=== PATIENT | male | born 1945 | race Caucasian/White ===

== ENCOUNTER 2017-08-12 07:22 | Inpatient (IN) | payer MEDICARE, OTHER ==
[2017-08-11 16:22] LABS: BASOPHILS % 0.2 % (0.0-1.0); EOSINOPHILS # (AUTO) 0.3 (0.0-0.4); EOSINOPHILS % 1.7 % (0.0-6.0); HEMATOCRIT 37.4 % (38.2-49.6); LYMPHOCYTES # (AUTO) 4.2 (1.0-3.2); LYMPHOCYTES % 22.6 % (18.0-39.1); MEAN CORPUSCULAR HEMOGLOBIN 28.1 pg (28-32); MEAN CORPUSCULAR HGB CONC 32.1 g/dL (31-35); MEAN CORPUSCULAR VOLUME 87.6 fL (81-99); MONOCYTES # (AUTO) 1.1 (0.2-0.8); MONOCYTES % 5.8 % (4.4-11.3); NEUTROPHILS # (AUTO) 12.8 (2.1-6.9); PLATELET COUNT 209 x10e3/uL (140-360); RED BLOOD COUNT 4.27 x10e6/uL (4.3-5.7); RED CELL DISTRIBUTION WIDTH 14.9 % (11.7-14.4)
[2017-08-11 16:33] LABS: INR 1.39
[2017-08-11 16:44] LABS: ALANINE AMINOTRANSFERASE 28 IU/L (0-55); ALBUMIN 3.5 g/dL (3.5-5.0); ALKALINE PHOSPHATASE 53 IU/L (40-150); ANION GAP 14.4 mmol/L (8-16); BLOOD UREA NITROGEN 23 mg/dL (7-26); BUN/CREATININE RATIO 24 (6-25); CALCIUM 9.6 mg/dL (8.4-10.2); CARBON DIOXIDE 29 mmol/L (22-29); CHLORIDE 101 mmol/L (98-107); CHOL/HDL RATIO 3.1 (3.9-4.7); CHOLESTEROL 135 MD/DL (0-199); CREATININE, SERUM 0.97 mg/dL (0.72-1.25); EST GLOMERULAR FILTRATION RATE > 60 ML/MIN (60-); HDL CHOLESTEROL 43 MG/DL (40-60); POTASSIUM 3.4 mmol/L (3.5-5.1); SODIUM 141 mmol/L (136-145)
[2017-08-11 16:50] LABS: GLUCOSE 59 mg/dL (74-118)
[2017-08-11 16:58] LABS: LDL CHOLESTEROL 67 MG/DL (60-130); TRIGLYCERIDES 124 MG/DL (0-149)
[~2017-08-12] VITALS: Ht 170.2 cm; Wt 99.5 kg
[~2017-08-12 07:22] MED LIST: ASPIR 8181 MG PO; FENTANYL CITRATE/PF 100MCG/2 ML INJ ONE; FINASTERIDE5 MG PO; GLIMEPIRIDE2 MG PO; HEPARIN SOD/SOD CHLORIDE 2,000 ML ONE; HYDRALAZINE HCL25 MG PO; IOPAMIDOL 370 MG/ML 200 ML INFUS..BTL INJ ONE; ISOSORBIDE MONO30 MG PO; LASIX40 MG PO; LIDOCAINE HCL 2% LOCAL 20 ML VIAL ONE; METFORMIN HCL500 MG PO; MIDAZOLAM HCL 2 MG/2 ML VIAL ONE; NEXIUM40 MG PO; PROAIR HFA INH8.5 GM IH; SIMVASTATIN20 MG PO; SODIUM CHLORIDE 0.9% 1000ML 1,000 ML ONE; TOPROL XL25 MG PO; TOPROL XL50 MG PO; WARFARIN SODIUM3 MG PO
[2017-08-12 07:32] VITALS: BP 142/66
[2017-08-12] MEDS ORDERED: HEPARIN SOD (PORCINE) 1000 UNIT/ML 30ML ONE (07:37)
[2017-08-12] MEDS ORDERED: VERAPAMIL HCL 2.5 MG/ML 2 ML VIAL ONE (07:37)
[2017-08-12] MEDS ORDERED: NITROGLYCERIN/D5W 200 MCG/ML 250 ML ONE (07:37)
[2017-08-12] MEDS: HYDRALAZINE HCL 25 MG TAB PO SCH ×2 (08:10→21:00)
[2017-08-12] MEDS ORDERED: IOPAMIDOL 370 MG/ML 200 ML INFUS..BTL INJ ONE (08:57)
[2017-08-12] MEDS ORDERED: SODIUM CHLORIDE 0.9% 50ML 50 ML ONE (09:01)
[2017-08-12] MEDS ORDERED: ADENOSINE 3MG/1ML 30ML VIAL ONE (09:01)
[2017-08-12] MEDS ORDERED: FUROSEMIDE INJ 10 MG/ML 4 ML VIAL ONE (09:13)
--- NOTE | 2017-08-12 10:59 | Operative Report ---
DATE OF PROCEDURE: August 12, 2017 CUSTOMER MARKETING ASSISTANT: Bhavesh Gutierrez MD, interventional cardiology. INDICATIONS 1. Worsening ventricular systolic function in a patient with known mild to moderate CAD, nonischemic cardiomyopathy, and systolic heart failure. 2. Angina pectoris, crescendo. PROCEDURES PERFORMED 1. Left heart catheterization. 2. Selective coronary angiography. 3. Left anterior descending fractional flow reserve. 4. Right radial TR band hemostasis. PROCEDURE COMPLICATIONS: None. ESTIMATED BLOOD LOSS: Less than 15 mL. PROCEDURE SUMMARY: After consent was obtained, the patient was prepped and draped in a sterile fashion. The right radial site was locally infiltrated with 2% lidocaine. Access was obtained. A 5-[place] Islander outer diameter Slender sheath was placed, and 2.5 mg of verapamil and 3,000 units initially of heparin and additional 6,000 units administered prior to FFR, and 200 mcg of nitroglycerin were administered. A TIG catheter was used for engagement of the left main, right coronary artery, as well as across the aortic valve for hemodynamic measurements. No left ventriculogram was performed. FINDINGS 1. Left main distal 20% stenosis, gives an LAD, ramus intermedius and circumflex. 2. The LAD has an ostial 60% stenosis. FFR of the LAD is 0.83 at peak hyperemia. 3. Ramus intermedius has luminal irregularities. 4. The circumflex has obtuse marginal of medium caliber, 30% focal stenosis distal to the obtuse marginal, and 2 left posterolateral branches arising from this vessel. 5. The right coronary artery is dominant. It has in the mid portion 40% and 30% focal stenoses and a distal area of 50% tubular stenosis. It gives small-caliber RPDA and small-caliber RPLV. 6. LV pressure was 121/10 with end-diastolic pressure of 31. 7. Aortic pressure was 120/56. 8. FFR of LAD was 0.83. CONCLUSIONS: Mild to moderate multivessel coronary artery disease. RECOMMENDATIONS 1. Continue medical management of CAD and heart failure. 2. Admit for IV diuretics. 3. EP consultation. Job#: [id number]
--- NOTE | 2017-08-12 12:53 | History and Physical ---
CHIEF COMPLAINT: Shortness of breath. HISTORY OF PRESENT ILLNESS: Mr. Beltran is a gentleman well known to our service with nonischemic cardiomyopathy, coronary artery disease, chronic systolic heart failure, hypertension, diabetes, dyslipidemia, who has had worsening in left ventricular systolic function requiring LifeVest placement. He underwent elective left heart catheterization today, demonstrated moderate coronary artery disease with LAD stenosis documented by FFR to be 0.83. Therefore, continued medical aggressive management for CAD and heart failure is advised. He has been on optimal medical therapy for over 3 months for his heart failure. Most recently he developed angioedema with Entresto as well as lisinopril. Therefore, this is now contraindicated. He is continuing beta blockers. His LVEDP today is in the 30s. He is being admitted for acute on chronic decompensated systolic heart failure for IV diuretics. EP will be consulted. REVIEW OF SYSTEMS: A 12-system review negative except for as noted above. PAST MEDICAL HISTORY: As per HPI. SOCIAL HISTORY: No active smoking, no alcohol, no drugs. FAMILY HISTORY: Significant for hypertension. PHYSICAL EXAMINATION: VITAL SIGNS: Blood pressure 120/56, heart rate 67, respiratory rate 18, O2 sat 99% on nasal cannula. GENERAL: No acute distress. Alert. NECK: JVD elevated. CHEST: Decreased breath sounds in bilateral bases. CARDIOVASCULAR: Regular rate and rhythm. Normal S1 and S2. No S3 or S4. ABDOMEN: Soft. EXTREMITIES: Trace edema. LABS: Reviewed. MEDICATIONS: Reviewed. ASSESSMENT: 1. Acute on chronic systolic heart failure. 2. Atrial fibrillation. 3. Nonischemic cardiomyopathy. 4. Moderate coronary artery disease. 5. Diabetes mellitus. 6. Hypertension. 7. Dyslipidemia. RECOMMENDATIONS 1. Hold warfarin for the next couple of days. 2. Wean TR band. 3. EP consultation for consideration of ICD. 4. Continue beta liss. 5. IV diuretics. 6. Insulin sliding scale. 7. Hold metformin given angiogram done today. 8. DVT prophylaxis. Job#: [id number] RODDY
[2017-08-12 13:23] VITALS: BP 123/56
[2017-08-12] MEDS ORDERED: DEXTROSE 50% SYRINGE 50 ML IV PRN (14:30)
[2017-08-12] MEDS ORDERED: POTASSIUM CHLORIDE 20 MEQ TAB CR PO NR (14:30)
[2017-08-12 15:22] VITALS: BP 143/66
[2017-08-12 15:34] VITALS: BP 143/66
[2017-08-12 15:51] VITALS: BP 143/6
[2017-08-12] MEDS: INSULIN REGULAR, HUMAN 100 UNIT/1 ML 3ML VIAL SQ SCH ×2 (16:00→21:16)
[2017-08-12] MEDS: METFORMIN HCL 500 MG TAB PO SCH (17:00)
[2017-08-12] MEDS: FUROSEMIDE INJ 10 MG/ML 2 ML VIAL IV SCH (17:00)
[2017-08-12] MEDS: WARFARIN SOD 3 MG TAB PO SCH (17:00)
[2017-08-12 20:29] VITALS: BP 140/64
[2017-08-12] MEDS: METOPROLOL SUCCINATE 50 MG TAB XL PO SCH (21:15)
[2017-08-12] MEDS: SIMVASTATIN 20 MG TAB PO SCH (21:15)
[2017-08-13] VITALS (7 sets, daily range): BP systolic 129–158; BP diastolic 60–68
[2017-08-13] MEDS: INSULIN REGULAR, HUMAN 100 UNIT/1 ML 3ML VIAL SQ SCH ×4 (07:30→21:00)
[2017-08-13] MEDS: METFORMIN HCL 500 MG TAB PO SCH ×2 (08:00→16:05)
[2017-08-13] MEDS: FUROSEMIDE INJ 10 MG/ML 2 ML VIAL IV SCH ×2 (08:10→21:36)
[2017-08-13] MEDS: ISOSORBIDE MONONITRATE 30 MG TAB CR PO SCH (08:10)
[2017-08-13] MEDS: FINASTERIDE 5 MG TAB PO SCH (08:10)
[2017-08-13] MEDS: PANTOPRAZOLE SOD 40 MG TABEC PO SCH (08:10)
[2017-08-13] MEDS: HYDRALAZINE HCL 25 MG TAB PO SCH ×3 (08:10→21:36)
[2017-08-13] MEDS: GLIMEPIRIDE 2 MG TAB PO SCH (08:10)
[2017-08-13 08:44] LABS: INR 1.2; PROTHROMBIN TIME 14.3 seconds (11.9-14.5)
[2017-08-13] MEDS: ASPIRIN 81 MG CHEW TAB PO SCH (09:00)
[2017-08-13] MEDS ORDERED: MIDAZOLAM HCL 2 MG/2 ML VIAL ONE (16:17)
[2017-08-13] MEDS ORDERED: FENTANYL CITRATE/PF 100MCG/2 ML INJ ONE (16:18)
[2017-08-13] MEDS ORDERED: LIDOCAINE HCL 2% LOCAL 20 ML VIAL ONE ×2 (16:18→17:13)
[2017-08-13] MEDS ORDERED: BACITRACIN 50,000 UNIT VIAL ONE (16:18)
[2017-08-13] MEDS ORDERED: IOPAMIDOL 300MG/ML 50ML INFUS..BTL IV ONE (16:19)
[2017-08-13] MEDS ORDERED: SODIUM CHLORIDE 0.9% 1000ML 1,000 ML ONE ×2 (16:19→17:04)
[2017-08-13] MEDS ORDERED: WARFARIN SOD 3 MG TAB PO SCH (17:00)
[2017-08-13] MEDS ORDERED: VANCOMYCIN 1GM/NS 250 ML 250 ML ONE (17:04)
[2017-08-13] MEDS ORDERED: SODIUM CHLORIDE 0.9% 500ML 500 ML ONE (17:09)
[2017-08-13] MEDS: METOPROLOL SUCCINATE 50 MG TAB XL PO SCH (21:00)
[2017-08-13] MEDS: SIMVASTATIN 20 MG TAB PO SCH (21:37)
--- NOTE | 2017-08-13 21:43 | Progress Note ---
DATE: August 13, 2017 CARDIOLOGY PROGRESS NOTE SUBJECTIVE: The patient denies chest pain or shortness of breath. He was seen prior to ICD implant. OBJECTIVE VITAL SIGNS: Temperature 96.2 degrees, pulse 56, respiratory rate 20, blood pressure 136/65, oxygen saturation 98% on room air. GENERAL: Awake, alert, in no acute distress. LUNGS: Clear to auscultation bilaterally. No wheezes or crackles. CARDIOVASCULAR: Normal rate, regular rhythm. Normal S1, S2. ABDOMEN: Soft. EXTREMITIES: No edema. CARDIAC MEDICATIONS 1. Isosorbide mononitrate 30 mg p.o. daily. 2. Furosemide 40 mg IV b.i.d. 3. Simvastatin 10 mg p.o. nightly. 4. Metoprolol succinate 200 mg p.o. daily. 5. Aspirin 81 mg p.o. daily. LABS: None today. TELEMETRY: Sinus bradycardia. IMPRESSION 1. Xmxxn-zx-clgtxfd systolic heart failure. 2. Atrial fibrillation. 3. Nonischemic cardiomyopathy. 4. Moderate coronary artery disease. 5. Diabetes mellitus. 6. Hypertension. 7. Dyslipidemia. RECOMMENDATIONS: Hold warfarin for ICD implantation. Continue current cardiac medications. Otherwise, monitor creatinine and electrolytes. Possible discharge home tomorrow after device interrogation if patient's symptoms are improved. Job#: [id number] DEYSI
[2017-08-13 22:25] LABS: ANION GAP 11.4 mmol/L (8-16); BLOOD UREA NITROGEN 15 mg/dL (7-26); BUN/CREATININE RATIO 19 (6-25); CALCIUM 8.7 mg/dL (8.4-10.2); CARBON DIOXIDE 28 mmol/L (22-29); CHLORIDE 106 mmol/L (98-107); EST GLOMERULAR FILTRATION RATE > 60 ML/MIN (60-); GLUCOSE 148 mg/dL (74-118); POTASSIUM 3.4 mmol/L (3.5-5.1); SODIUM 142 mmol/L (136-145)
--- NOTE | 2017-08-13 23:53 | Operative Report ---
DATE OF PROCEDURE: August 13, 2017 PREPROCEDURE DIAGNOSES 1. 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 2. Congestive heart failure class III. POSTPROCEDURE DIAGNOSES 1. 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 2. Congestive heart failure class III. ESTIMATED BLOOD LOSS: 5 mL. COMPLICATIONS: None. PROCEDURES PERFORMED 1. Single-chamber cardiac defibrillator implant. 2. Moderate sedation. Moderate conscious sedation was provided under my direct supervision by sedation-trained nurse. Sedation approximate time 30 minutes. Versed and Fentanyl. There were no complications. See sedation form for details. DESCRIPTION OF PROCEDURE: After informed consent was obtained, the patient was brought to the electrophysiology laboratory in a fasting, nonsedated state. The area over his chest was prepped and draped in the usual sterile fashion. Moderate sedation and prophylactic antibiotic were given. One percent lidocaine was used as local anesthetic and a 3-cm skin incision was made in the left subclavicular area. Electrocautery, sharp and blunt dissection were used to breach the muscular fascia and a pocket was created for eventual implantation of the device. Vascular access was obtained times 1 in the left axillary vein using modified Seldinger technique under fluoroscopic guidance. A 9-Kazakh sheath was placed. The ventricular lead was advanced to the RV apex. R wave 10, pacing 0.6 at 0.5, impedance 690. The sheath was removed from the body. The lead was secured to fascia using 0-silk. Pocket was irrigated with antibiotic solution using a pulse mail processing equipment mechanic. Hemostasis was meticulous. Lead was connected to the device and entire ICD system placed in the pocket. Incision was closed using Vicryl and Dermabond. Patient tolerated the procedure well. Procedure was deemed complete. SUMMARY OF HARDWARE IMPLANTED 1. The new defibrillator is [employer], model #[id number], [id number]. 2. The new defibrillator lead is [place] [employer] 8065, [id number]. IMPRESSION: Successful single-chamber cardiac defibrillator implant. PLAN 1. Routine postop monitoring in telemetry bed. 2. Chest x-ray. 3. Follow up in 2 weeks. Job#: [id number]
[2017-08-14] VITALS: BP 143/65
[2017-08-14] MEDS: INSULIN REGULAR, HUMAN 100 UNIT/1 ML 3ML VIAL SQ SCH ×3 (07:30→15:45)
[2017-08-14 08:08] VITALS: BP 160/67
[2017-08-14] MEDS: PANTOPRAZOLE SOD 40 MG TABEC PO SCH (09:39)
[2017-08-14] MEDS: GLIMEPIRIDE 2 MG TAB PO SCH (09:39)
[2017-08-14] MEDS: FINASTERIDE 5 MG TAB PO SCH (09:42)
[2017-08-14] MEDS: FUROSEMIDE INJ 10 MG/ML 2 ML VIAL IV SCH ×2 (09:42→17:17)
[2017-08-14] MEDS: HYDRALAZINE HCL 25 MG TAB PO SCH ×2 (09:42→14:01)
[2017-08-14] MEDS: ISOSORBIDE MONONITRATE 30 MG TAB CR PO SCH (09:42)
[2017-08-14] MEDS: METFORMIN HCL 500 MG TAB PO SCH ×2 (09:42→17:17)
[2017-08-14] MEDS: ASPIRIN 81 MG CHEW TAB PO SCH (09:42)
[2017-08-14 09:48] VITALS: BP 160/67
[2017-08-14 12:00] VITALS: BP 135/61
[2017-08-14 16:06] VITALS: BP 144/63
--- NOTE | 2017-08-14 16:42 | Discharge Summary ---
ADMISSION DIAGNOSES 1. Rtgkb-on-xmdfwpa systolic heart failure. 2. Nonischemic cardiomyopathy. DISCHARGE DIAGNOSES 1. Fwleq-dj-pzhwsso systolic heart failure. 2. Nonischemic cardiomyopathy. 3. Comorbid conditions. 4. Atrial fibrillation. 5. Moderate coronary artery disease. 6. Diabetes mellitus. 7. Hypertension. 8. Dyslipidemia. PROCEDURES: 1. Cardiac catheterization. 2. Single chamber cardiac defibrillator implant. HISTORY OF PRESENT ILLNESS AND HOSPITAL COURSE: This is a 72-year-old male with history as above who presented for elective cardiac catheterization. It revealed moderate coronary artery disease with LAD stenosis documented by FFR to be 0.83. He was continued on aggressive medical therapy and EP was consulted for ICD implantation as the patient has been on optimal medical therapy for over 3 months. He, unfortunately, cannot tolerate MINO or ARB as he develops angioedema with Entresto and lisinopril. The patient's LVEDP was elevated on cardiac catheterization, thus he was diuresed during admission. He tolerated ICD implantation without any complications, and was discharged home in stable condition. ACTIVITY: Arm restrictions per EP. DIET: Heart Healthy Diabetic Low-Sodium diet. MEDICATIONS: Please see discharge medication reconciliation. FOLLOWUP INSTRUCTIONS: 1. Follow up with Dr. Gutierrez in 2 weeks. 2. Follow up with Dr. Buckley in 2 weeks. VITAL SIGNS: Reviewed. PHYSICAL EXAMINATION GENERAL: Awake, alert, in no acute distress. LUNGS: Clear to auscultation bilaterally. No wheezes or crackles. CARDIOVASCULAR: Normal rate, regular rhythm. Normal S1, S2. ABDOMEN: Soft. EXTREMITIES: No edema. TELEMETRY: Normal sinus rhythm. COLBY SLAUGHTER MD Job#: [id number] GH
[2017-08-14 17:09] LABS: ANION GAP 15.5 mmol/L (8-16); BLOOD UREA NITROGEN 13 mg/dL (7-26); BUN/CREATININE RATIO 14 (6-25); CALCIUM 9.7 mg/dL (8.4-10.2); CARBON DIOXIDE 27 mmol/L (22-29); CHLORIDE 102 mmol/L (98-107); CREATININE, SERUM 0.96 mg/dL (0.72-1.25); EST GLOMERULAR FILTRATION RATE > 60 ML/MIN (60-); GLUCOSE 96 mg/dL (74-118); POTASSIUM 3.5 mmol/L (3.5-5.1); SODIUM 141 mmol/L (136-145)
[2017-08-14] MEDS: WARFARIN SOD 3 MG TAB PO SCH (17:17)
--- NOTE | 2017-08-14 18:11 | Consultation ---
DATE OF CONSULTATION: August 13, 2017 REASON FOR CONSULT: Cardiomyopathy, consider ICD. REFERRING PHYSICIAN: Dr. Gutierrez. HISTORY OF PRESENT ILLNESS: This is a 72-year-old gentleman with history of cardiomyopathy that is nonischemic dilated cardiomyopathy with ejection fraction of 25% to 30%, has been refractory to medical therapy for more than 3 months, followed by Dr. Gutierrez. He has coronary artery disease; however, underwent heart catheterization and it was found to be nonsignificant, so no intervention was performed. We were consulted to consider a defibrillator. Patient has shortness of breath with minimal activities, congestive heart failure class III. No history of syncope. No palpitations. No history of cardiac arrest. REVIEW OF SYSTEMS CONSTITUTIONAL: Negative. CARDIOVASCULAR: As per HPI. RESPIRATORY: Negative. GASTROINTESTINAL: Negative. GENITOURINARY: Negative. MUSCULOSKELETAL: Negative. EYES: Negative. ENT: Negative. ALLERGY/IMMUNOLOGY: Negative. PSYCHIATRY: Negative. PAST MEDICAL HISTORY: Cardiomyopathy, coronary artery disease. SOCIAL HISTORY: No smoking, alcohol or illicit drugs. SURGICAL HISTORY: Negative. FAMILY HISTORY: No premature coronary artery disease. PHYSICAL EXAM VITAL SIGNS: Blood pressure 160/60, pulse 70, respirations 20, O2 sat 98%. GENERAL: In no acute distress. HEENT: Moist mucous membranes. No lesions. NECK: No JVD. CARDIOVASCULAR: Regular rhythm. RESPIRATORY: Clear. ABDOMEN: Soft, nontender. MUSCULOSKELETAL: 2+ distal pulses. NEUROLOGICAL: No focal deficit. SKIN: No lesions. PSYCHIATRY: Normal thought process. EKG: Sinus rhythm. Narrow QRS. IMPRESSION 1. Nonischemic dilated cardiomyopathy with ejection fraction 25% to 30% refractory to medical therapy. 2. Congestive heart failure class III. RECOMMENDATIONS: I had a long discussion with the patient. He will benefit from a defibrillator for primary prevention of sudden cardiac . This was explained in detail with benefits and risks. Patient voiced his understanding and wishes to proceed. We will plan for a single-chamber cardiac defibrillator implant. Thank you for letting us participate in Mr. Beltran's [facility]. Job#: [id number]
== END 2017-08-14 18:11 | disposition home or self-care (01) | DRG 223 ==
LOC: CATH LAB 07:22 → IMCU 11:36 → OBSVTOIN 11:36 → IMCU 13:45 → UNDOADMOB 13:45 → IMCU 14:22 → MED/SURG2 14:22 → UNDODISOB 08-14 18:11
PROVIDERS: ADMIT Internal Medicine Cardiovascular Disease; ATTEND Internal Medicine Cardiovascular Disease
PROC: 4A023N7 Measurement of Cardiac Sampling and Pressure, Left Heart, Percutaneous Approach (ICD-10-PCS; principal; 2017-08-12)
PROC: B2111ZZ Fluoroscopy of Multiple Coronary Arteries using Low Osmolar Contrast (ICD-10-PCS; 2017-08-12)
PROC: B2151ZZ Fluoroscopy of Left Heart using Low Osmolar Contrast (ICD-10-PCS; 2017-08-12)
PROC: 0JH608Z Insertion of Defibrillator Generator into Chest Subcutaneous Tissue and Fascia, Open Approach (ICD-10-PCS; 2017-08-13)
PROC: 02HK3KZ Insertion of Defibrillator Lead into Right Ventricle, Percutaneous Approach (ICD-10-PCS; 2017-08-13)
DX: I11.0 Hypertensive heart disease with heart failure (principal); I50.23 Acute on chronic systolic (congestive) heart failure; I48.91 Unspecified atrial fibrillation; Z79.01 Long term (current) use of anticoagulants; I25.10 Atherosclerotic heart disease of native coronary artery without angina pectoris; E11.9 Type 2 diabetes mellitus without complications; E78.5 Hyperlipidemia, unspecified; Z88.8 Allergy status to other drugs, medicaments and biological substances
CPT/HCPCS: 36005; 36140; 36415; 77001; 77002; 80048; 80053; 80061; 82948; 85025; 85610; 93005; 93458; 93571; C1882; G0378; J0153; J1644; J1940; J2001; J2250; J3370; J7030; J7040; J7799; Q9967

== ENCOUNTER 2018-07-16 12:30 | Observation (INO) | payer MEDICARE ==
--- NOTE | 2018-07-15 12:15 | NUR ---
Pt interviewed for scheduled procedure. reviewed of medical history and medications. Review of procedural consent, pre-op orders, and Hibiclens bath. All questions clarified and or answered where appropriate. pt verbalizes understanding to include day of procedure expectations. - [facility] [place]
--- NOTE | 2018-07-15 12:59 | NUR ---
Dr. Walters notified via phone no labwork ordered for patient. Dr. Walters ordered CBC, CMP, and PT/INR for patient.
[2018-07-15 13:10] LABS: BASOPHILS # (AUTO) 0.1 (0.0-0.1); BASOPHILS % 0.5 % (0.0-1.0); EOSINOPHILS # (AUTO) 0.4 (0.0-0.4); EOSINOPHILS % 3.6 % (0.0-6.0); HEMATOCRIT 39.1 % (38.2-49.6); HEMOGLOBIN 12.1 g/dL (14.0-18.0); LYMPHOCYTES % 24.6 % (18.0-39.1); MEAN CORPUSCULAR HEMOGLOBIN 26.8 pg (28-32); MEAN CORPUSCULAR HGB CONC 30.9 g/dL (31-35); MEAN CORPUSCULAR VOLUME 86.7 fL (81-99); MONOCYTES # (AUTO) 1.1 (0.2-0.8); MONOCYTES % 8.8 % (4.4-11.3); NEUTROPHILS # (AUTO) 7.6 (2.1-6.9); NEUTROPHILS % 62.2 % (38.7-80.0); PLATELET COUNT 240 x10e3/uL (140-360); RED BLOOD COUNT 4.51 x10e6/uL (4.3-5.7); RED CELL DISTRIBUTION WIDTH 15.7 % (11.7-14.4)
[2018-07-15 13:21] LABS: INR 0.89; PROTHROMBIN TIME 12.5 seconds (11.9-14.5)
[2018-07-15 13:28] LABS: ALANINE AMINOTRANSFERASE 18 IU/L (0-55); ALBUMIN 3.7 g/dL (3.5-5.0); ALKALINE PHOSPHATASE 75 IU/L (40-150); ANION GAP 14.1 mmol/L (8-16); BLOOD UREA NITROGEN 18 mg/dL (7-26); BUN/CREATININE RATIO 16 (6-25); CALCIUM 9.4 mg/dL (8.4-10.2); CARBON DIOXIDE 28 mmol/L (22-29); CHLORIDE 103 mmol/L (98-107); CREATININE, SERUM 1.11 mg/dL (0.72-1.25); EST GLOMERULAR FILTRATION RATE > 60 ML/MIN (60-); GLUCOSE 84 mg/dL (74-118); POTASSIUM 4.1 mmol/L (3.5-5.1); SODIUM 141 mmol/L (136-145)
[2018-07-16] VITALS (13 sets, daily range): BP systolic 125–159; BP diastolic 62–82
[~2018-07-16] VITALS: Ht 170.2 cm; Wt 96.2 kg
[~2018-07-16 12:30] MED LIST changes: +BACITRACIN ZINC 0.9GM TP ONE; -FENTANYL CITRATE/PF 100MCG/2 ML INJ ONE; -HEPARIN SOD/SOD CHLORIDE 2,000 ML ONE; -IOPAMIDOL 370 MG/ML 200 ML INFUS..BTL INJ ONE; -LIDOCAINE HCL 2% LOCAL 20 ML VIAL ONE; -MIDAZOLAM HCL 2 MG/2 ML VIAL ONE; -SODIUM CHLORIDE 0.9% 1000ML 1,000 ML ONE
[2018-07-16] MEDS ORDERED: MIDAZOLAM HCL 2 MG/2 ML VIAL ONE ×2 (13:14→15:35)
[2018-07-16] MEDS ORDERED: IOPAMIDOL 370 MG/ML 200 ML INFUS..BTL INJ ONE ×3 (13:14→15:37)
[2018-07-16] MEDS ORDERED: SODIUM CHLORIDE 0.9% 1000ML 1,000 ML ONE (13:14)
[2018-07-16] MEDS ORDERED: HEPARIN SOD/SOD CHLORIDE 2,000 ML ONE (13:14)
[2018-07-16] MEDS ORDERED: FENTANYL CITRATE/PF 100MCG/2 ML INJ ONE (13:14)
[2018-07-16] MEDS ORDERED: LIDOCAINE HCL 2% LOCAL 20 ML VIAL ONE (13:14)
--- OUTSIDE RECORDS SUMMARY | 2018-07-16 13:56 | XMS REPORT ---
Author [facility] Address Unknown Phone Unavailable Care Team Providers Care Wealth Management Advisor Name Role Phone Unavailable Unavailable Payers Payer Name Policy Type Policy Number Effective Date Expiration Date Problems This patient has no known problems. Allergies, Adverse Reactions, Alerts Allergy Name Allergy Type Status Severity Reaction(s) Onset Date Inactive Date Treating Clinician Comments valsartan DA Active 2018-04-14 00:00:00 sacubitril DA Active SV 2018-04-14 00:00:00 lisinopril DA Active U 2018-02-22 00:00:00 lisinopril DA Active U 2018-02-05 00:00:00 lisinopril DA Active U 2017-08-09 00:00:00 Medications This patient has no known medications. Results Test Description Test Time Test Comments Text Results Atomic Results Result Comments - XR CHEST 1 V 2018-04-20 16:31:00 FAX: Meng Belcher [phone] [place]: [address] St: DIS FAX: Meng Mcclelland [phone] FAX: Marisela Kraft MD [phone] Name: RULA SIMMONS [facility] : 1945 Age/S: 72/M [address] Unit #: [id number] [facility] [address] Phys: Marisela Velasquez MD Acct: [id number] Dis Date: 20180421 Status: DIS IN PHONE #: [phone] Exam Date: 04/20/2018 1350 FAX #: [phone] Reason: sob EXAMS: CPT CODE: [id number] XR CHEST 1 V 66951 EXAM: Chest x-ray, one view; INFORMATION: Shortness of breath, respiratory distress; IMPRESSION: No significant change compared with the recent study from April 17, 2018; persistent mild infiltrative changes in the right lung. Mild cardiomegaly. at 1631 Reported and signed by: Alex Mares M.D. CC: Meng Crisostomo DO; Meng Mcclelland MD; Marisela Velasquez MD Technologist: RT JOYCELYN(Yamilet) Trnscrd Date/Time/By: 04/20/2018 (7852) : By: [email or web address] Orig Print D/T: S: 04/20/2018 (0141) PAGE 1 Signed Report - XR CHEST 1 V 2018-04-17 10:38:00 FAX: Meng Belcher [phone] [place]: [address] St: DIS FAX: Meng Mcclelland [phone] Name: RULA SIMMONS [facility] : 1945 Age/S: 72/M [address] Unit #: [id number] Loc: [place] [address] Phys: Meng Mcclelland MD Acct: [id number] Dis Date: 20180421 Status: DIS IN PHONE #: [phone] Exam Date: 04/17/2018 0846 FAX #: [phone] Reason: RESP DISTRESS. CHF. PNA EXAMS: CPT CODE: [id number] XR CHEST 1 V 74305 HISTORY: Respiratory distress with CHF and pneumonia. COMPARISON: April 15, 2018. Left ICD is unchanged. Patchy nodular right infiltrate is unchanged. Dependent changes. No effusion. No congestion. Cardiomegaly. IMPRESSION: Patchy nodular right lung infiltrate demonstrating no significant change. at 1038 Reported and signed by: Tho Dominique M.D. CC: Meng Crisostomo DO; Meng Mcclelland MD Technologist: Bailey jaimes Trnscrd Date/Time/By: 04/17/2018 (1038) : By: [email or web address] Orig Print D/T: S: 04/17/2018 (1041) PAGE 1 Signed Report - XR CHEST 1 V 2018-04-15 10:20:00 FAX: Meng Belcher [phone] [place]: [address] St: DIS FAX: Meng Mcclelland [phone] Name: RULA SIMMONS [facility] : 1945 Age/S: 72/M [address] Unit #: [id number] Loc: [address] [address] Phys: Meng Mcclelland MD Acct: [id number] Dis Date: 20180421 Status: DIS IN PHONE #: [phone] Exam Date: 04/15/2018 0936 FAX #: [phone] Reason: CHF EXACERBATION EXAMS: CPT CODE: [id number] XR CHEST 1 V 42889 HISTORY: CHF exacerbation. COMPARISON: April 12, 2018. ICD is unchanged. Patchy right infiltrate. Dependent changes. No effusion or congestion. Cardiomegaly IMPRESSION: Worsening patchy right lung infiltrate from previous exam. at 1020 Reported and signed by: Tho Dominique M.D. CC: Meng Crisostomo DO; eMng Mcclelland MD Technologist: Svitlana Chen(R) Trnscrd Date/Time/By: (1020) : By: [email or web address] Orig Print D/T: S: 04/15/2018 (3241) PAGE 1 Signed Report - XR CHEST 1 V 2018-04-12 20:49:00 FAX: Calvin Mabry MD [phone] [place]: [address]: DIS Name: RULA SIMMONS [facility] : 1945 Age/S: 72/M [address] [facility] Unit #: [id number] Loc: V.[address] [place] [address] Phys: Calvin Mabry MD Acct: [id number] Dis Date: 20180421 Status: DIS IN PHONE #: [phone] Exam Date: 04/12/20182042 FAX #: [phone] Reason: Shortness of Breath EXAMS: CPT CODE: [id number] XR CHEST 1 V 06384 EXAM: Chest x-ray, one view; INFORMATION: Shortness of breath; FINDINGS: Prominent right hilum and infrahilar densities which may represent atelectatic or infiltrative changes. The remainder of the lungs is clear. No effusions; the heart is slightly enlarged. Aortic calcifications. Left subclavian pacemaker in place. IMPRESSION: 1. Right basilar infiltrate or atelectasis. 2. Prominent right hilum, which could be due to adenopathy. 3. Mild cardiomegaly. at 2048 Reported and signed by: Alex Mares M.D. CC: Calvin Mabry MD Technologist: Donna Walsh Trnscrd Date/Time/By: 04/12/2018 (2048) : By: [email or web address] Orig Print D/T: S: 04/12/2018 (2051) PAGE 1 Signed Report
[2018-07-16] MEDS ORDERED: SODIUM CHLORIDE 0.9% 100 ML 100 ML ONE (14:54)
[2018-07-16] MEDS ORDERED: ADENOSINE 3MG/1ML 30ML VIAL ONE (14:54)
[2018-07-16] MEDS ORDERED: ASPIRIN 325 MG TAB ONE (15:56)
[2018-07-16] MEDS ORDERED: TICAGRELOR 90 MG TABLET ONE (15:56)
--- NOTE | 2018-07-16 16:13 | NUR ---
3133 received pt from landscaping and groundskeeping laborer to rm #10 [facility] stent proximal LAD unable to do total fix for [facility] balloon tomorrow afternoon per Dr Walters. Back to baseline orientation Resp shallow and regular 97% on room air. Moniotr SR w/o ectopics Iv to infuse total 750 ns on iv controller for additonal 250 to infuse. Left arm 20g w/o sls infiltration. Son Tani at bedside aware of POC Dr Walters spoke with pt and family Aware will stay tonight and re cath tomorrow. Jamie PPx4 present. Rt tr band site stable No gross signs pain, pallor, Pressure or dysrhythmia. Rt Tr band w/o bleeding or hematoma ,ok to titrate at 1730pm. ds/rn
--- NOTE | 2018-07-16 16:15 | NUR ---
1615 reviewed pt home meds to be given in hospital care see written order sheet, Brilenta 180 given in manufacturing laborer as well as 325 ASA,67126 Heparin. ds/rn 1630 Narco 5mg/325 for knee pain 7 of 10 Hx of gout 1745 states left hip pain remains 8 of 10 Medicate morphine 4mg ivp ds/rn
[2018-07-16] MEDS ORDERED: HYDROCODONE/APAP 5MG-325MG TAB ONE (16:29)
--- NOTE | 2018-07-16 16:30 | NUR ---
1630 medicated po Narco for left knee pain with hx gout 10/07 family at bedside HOB elevated ate dinner tray tolerated well Denies necessity to defecate or urinate ds/rn
--- NOTE | 2018-07-16 17:30 | NUR ---
1730 TR band titration in progress 13cc balloon -2cc balance 11cc .No gross signs of pain,pallor,pressure or dysrhythmia. 1745 TR band titration continued, -2cc balance balloon 9cc, no gross signs pain,pallor,pressure or dysrhythmia. 1800cc TR band titration continued -2cc ,balance balloon 7cc, no gross signs pain pallor or dysrhythmia. c/o left groin pain hx gout 4mg Morphine ivp at 1745 . 1800 denies c/o pain to left groin TR band titration continued no gross signs of pain,pallor,pressure to rt arm Radial pulse adequate. ds/rn
[2018-07-16] MEDS ORDERED: MORPHINE SULFATE INJ 4 MG/ML INJ 1ML ONE (17:40)
--- NOTE | 2018-07-16 18:15 | NUR ---
1814 ooze to TR band site noted Replaced 2cc air to TR band site Pressure applied w/o ooze and hold titration for 15minutes. family remain at bedside No gross signs pain pallor pressure or dysrhythmia. ds/rn
--- NOTE | 2018-07-16 19:00 | NUR ---
1900pm TR BAND titration completed tolerated well . Coban 2x2 dressing with arm splint in place.Phone report and face to face report to Carmen GUADALUPE. Had C fix and need re-balloon tomorrow in afternoon per Dr Walters. Claear liquidam breakfast and needs labs already in computer. Iv needs only additional 100cc to infuse at 75cchr. Then saline lock. See mutiple home po meds to be given. A written list is on physician order form. Pt states he did get his am po meds at home meds. Metformin needs to continue to hold.(confirm restart post LHC balloon tomorrow) Transported with tele and stretcher and RN escort. Report to monitor room . Remains NSR Family member Tani at bedside. Has relief from pain voice with gout Naro 5/325 a 1630 and followed with Morphine 4mg iv push in cardiac cath technologist recovery. Total Fentanyl 75 and versed 3 in procedural cardiac cath technologist.Denies CP with co fullness. Sats 98% Room air with some dyspnea on transfer to bed and reinforced to bedside nurse Carmen GUADALUPE.,necessity to start home meds. ds/rn
[2018-07-16] MEDS ORDERED: SIMVASTATIN80 MG PO (19:06)
[2018-07-16] MEDS ORDERED: METOPROLOL SUCC50 MG PO (19:06)
[2018-07-16] MEDS ORDERED: ELIQUIS 5 MG PO (19:06)
[2018-07-16] MEDS ORDERED: HYDRALAZINE HCL25 MG PO (19:06)
[2018-07-16] MEDS ORDERED: COLCRYS0.6 MG PO (19:07)
[2018-07-16] MEDS ORDERED: LASIX40 MG PO (19:09)
--- NOTE | 2018-07-16 19:24 | NUR ---
PT ARRIVED BY STRETCHER TO ROOM 109. PT IS AAOX3, RR EVEN AND NON-LABORED, ON RA. NO S/SX OF DISTRESS NOTED. (R) WRIST SPLINT NOTED. BLE AND BUE PULSES NOTED. ORIENTED PT TO HOSPITAL ROOM, CALL LIGHT, PHONE, BED CONTROLS, AND LIGHTS. LEFT PT LAYING SEMI FOWLERS IN BED, BED IN LOW LOCKED POSITION, SIDE RAILS UPX2, CALL LIGHT AND PHONE WITHIN REACH.
--- NOTE | 2018-07-16 20:00 | NUR ---
[address] Walters inquired if he wants home lasix tonight. "Pt states full " States no will re evaluate in am.Pt did voided 150cc concentrated urine in labor representative recovery area. (ds/rn labor representative recovery nurse)
[2018-07-16] MEDS ORDERED: MORPHINE SULFATE INJ 4 MG/ML INJ 1ML IV PRN (20:15)
--- NOTE | 2018-07-16 20:54 | NUR ---
SPOKE WITH MD SLAUGHTER, COVERING FOR MD EDUARDO, CONCERNING PT REPORTS OF SORE THROAT AND HOME MEDICATION SIMVASTATIN. PT TAKES 10MG INSTEAD OF 100MG. OK TO CHANGE MEDICATION TO 10MG OF SIMVASTATIN. NEW ORDERS RECEIVED.
[2018-07-16] MEDS ORDERED: CEPACOL SORE THROAT LOZENGES PO PRN (21:00)
[2018-07-16] MEDS ORDERED: SIMVASTATIN 20 MG TAB PO SCH (21:00)
[2018-07-16] MEDS: METOPROLOL SUCCINATE 50 MG TAB XL PO SCH (21:10)
[2018-07-16] MEDS: HYDRALAZINE HCL 25 MG TAB PO SCH (21:10)
[2018-07-16] MEDS ORDERED: HYDROCODONE/APAP 5MG-325MG TAB PO PRN (22:30)
[2018-07-17] VITALS (8 sets, daily range): BP systolic 152–181; BP diastolic 68–79
--- NOTE | 2018-07-17 00:23 | Operative Report ---
DATE OF PROCEDURE: 07/17/2018 SURGEON: Franklin Walters DO PROCEDURES PERFORMED: 1. Conscious sedation, 60 minutes. 2. Selective coronary angiography x2. 3. Left heart catheterization. 4. Fractional flow reserve measurement of the LAD. 5. Percutaneous coronary intervention of the LAD. PREPROCEDURE DIAGNOSES: 1. Coronary artery disease. 2. Congestive heart failure. POSTPROCEDURE DIAGNOSES: 1. Coronary artery disease. 2. Congestive heart failure. ESTIMATED BLOOD LOSS: Less than 20 mL. SPECIMENS REMOVED: None. PROCEDURE IN DETAIL: After informed consent was obtained, the patient was brought to the cardiac catheterization laboratory in a fasting and nonsedated state. Bilateral groins were prepped and draped in usual sterile fashion. Right wrist was prepped and draped in the usual sterile fashion. A 2% lidocaine was infiltrated over the right wrist for local anesthesia. Using micropuncture needle, the right radial artery was accessed via the modified Seldinger technique and a 6-[place] Zealander glide sheath was placed. Next, diagnostic coronary angiography was performed using a Les and JR4 catheter. The left ventricle was cannulated with a Les catheter and hemodynamic parameters were obtained. Diagnostic imaging revealed a 70% proximal to mid LAD stenosis. A decision was made to further interrogate this lesion. The patient received systemic heparin for therapeutic anticoagulation. The lesion was crossed with a Posterbee FFR wire and the patient received systemic adenosine for maximal hyperemia. The lowest FFR reading was 0.73. The lesion was pre-dilated with a 2.5 x 12 balloon. The lesion was stented with a 2.75 x 16 Synergy drug-eluting stent. Next, lesion was post dilated with a 3.5, then subsequently with a 4 x 12 noncompliant balloon. This did not yield adequate stent expansion. No other optimal balloons were available for use. The patient received dual anti-platelet therapy. The catheter was subsequently removed and sheath was removed and hemostasis was achieved via TR band. The patient tolerated the procedure well with no immediate complications, transferred back to his room in stable condition. PROCEDURE FINDINGS: 1. Left main coronary artery is patent. 2. Left anterior descending coronary artery has a proximal mid 70% stenosis at the takeoff of the first diagonal branch. There is mild 30% disease at the ostium of the diagonal branch. The distal LAD itself has a diffusely diseased 50% stenosis at the LV apex. 3. Left circumflex coronary artery provides three obtuse marginal vessels with mild luminal irregularities to 20% stenosis. 4. The right coronary artery is the dominant vessel and provides a small posterior descending coronary artery. The mid and distal portions of the RCA have 20% to 30% stenosis. 5. Left ventricular end-diastolic pressure was elevated at 34 mmHg with no aortic valve gradient present upon pullback. INTERVENTION RESULTS: Successful percutaneous coronary intervention of the proximal mid left anterior descending coronary artery. Pre-PCI JALEN flow was 2. Post-PCI JALEN flow was 3. Postprocedure stenosis approximately 30% to 40% stenosis. IMPRESSION AND PLAN: This is a gentleman, who was found to have systolic congestive heart failure and significant coronary artery disease in the LAD. He underwent successful percutaneous coronary intervention; however, the pain cannot be fully expanded. The patient will be brought back for optimal stent expansion with adequate balloon size. DO JOSSY Conti/KATRIN /[id number]
--- NOTE | 2018-07-17 06:54 | NUR ---
SPOKE WITH MD SLAUGHTER CONCERNING PT REPORTS OF FEELING SOB, OBTAIN AM LABS AND IF RENAL FUNCTION WNL OK TO GIVE LASIX.
[2018-07-17 07:00] LABS: BASOPHILS # (AUTO) 0.1 (0.0-0.1); BASOPHILS % 0.3 % (0.0-1.0); EOSINOPHILS # (AUTO) 0.4 (0.0-0.4); EOSINOPHILS % 2.2 % (0.0-6.0); HEMATOCRIT 42.6 % (38.2-49.6); HEMOGLOBIN 12.8 g/dL (14.0-18.0); LYMPHOCYTES # (AUTO) 2.2 (1.0-3.2); LYMPHOCYTES % 13.3 % (18.0-39.1); MEAN CORPUSCULAR HEMOGLOBIN 26.3 pg (28-32); MEAN CORPUSCULAR VOLUME 87.7 fL (81-99); MONOCYTES # (AUTO) 1.3 (0.2-0.8); MONOCYTES % 7.7 % (4.4-11.3); NEUTROPHILS # (AUTO) 12.8 (2.1-6.9); NEUTROPHILS % 76.2 % (38.7-80.0); PLATELET COUNT 246 x10e3/uL (140-360); RED BLOOD COUNT 4.86 x10e6/uL (4.3-5.7); RED CELL DISTRIBUTION WIDTH 15.9 % (11.7-14.4)
[2018-07-17] MEDS ORDERED: GLIMEPIRIDE 2 MG TAB PO SCH (07:30)
[2018-07-17] MEDS ORDERED: PANTOPRAZOLE SOD 40 MG TABEC PO SCH (07:30)
[2018-07-17 07:34] LABS: ANION GAP 16.1 mmol/L (8-16); BLOOD UREA NITROGEN 19 mg/dL (7-26); BUN/CREATININE RATIO 18 (6-25); CALCIUM 9.5 mg/dL (8.4-10.2); CARBON DIOXIDE 22 mmol/L (22-29); CHLORIDE 107 mmol/L (98-107); CREATININE, SERUM 1.06 mg/dL (0.72-1.25); EST GLOMERULAR FILTRATION RATE > 60 ML/MIN (60-); GLUCOSE 113 mg/dL (74-118); POTASSIUM 4.1 mmol/L (3.5-5.1); SODIUM 141 mmol/L (136-145)
[2018-07-17] MEDS: HYDRALAZINE HCL 25 MG TAB PO SCH ×3 (08:16→18:07)
[2018-07-17] MEDS: METOPROLOL SUCCINATE 50 MG TAB XL PO SCH (08:17)
[2018-07-17] MEDS ORDERED: FUROSEMIDE 40 MG TAB PO ONE (09:00)
[2018-07-17] MEDS ORDERED: TICAGRELOR 90 MG TABLET PO SCH (09:00)
[2018-07-17] MEDS ORDERED: ASPIRIN 81 MG CHEW TAB PO SCH (09:00)
--- NOTE | 2018-07-17 09:39 | NUR ---
MD SLAUGHTER OK TO GIVE BRILLINTA AND ASPIRIN NOW .
--- NOTE | 2018-07-17 09:45 | NUR ---
NOTIFIED MD SLAUGHTER OF PT C/O OF SOB NOTIFIED SAT ARE 100% ON RA STATES "I KNOW" NO ORDERS RECEIVED
--- NOTE | 2018-07-17 12:24 | NUR ---
PT C/O SOB. SATS ARE 100 ON RA. PLACED PT ON 02 2L FOR COMFORT. INSTRUCTED PT TO RELAX AND TAKE DEEP BREATHS IN AND OUT
--- NOTE | 2018-07-17 13:01 | NUR ---
CALLED MD EDUARDO OFFICE NO REPLY . LEFT DETAILED VOICEMAIL REGARDING PT C/O OF SOB AWAITING FOR CALL BACK
[2018-07-17] MEDS ORDERED: LIDOCAINE HCL 2% LOCAL 20 ML VIAL ONE (13:31)
[2018-07-17] MEDS ORDERED: HEPARIN SOD/SOD CHLORIDE 2,000 ML ONE (13:31)
[2018-07-17] MEDS ORDERED: IOPAMIDOL 370 MG/ML 200 ML INFUS..BTL INJ ONE ×2 (13:31→14:18)
--- NOTE | 2018-07-17 13:33 | NUR ---
PT OFF UNIT FOR CATH AT THIS TIME VIA STRETCHER
[2018-07-17] MEDS ORDERED: FENTANYL CITRATE/PF 100MCG/2 ML INJ ONE (13:46)
[2018-07-17] MEDS ORDERED: MIDAZOLAM HCL 2 MG/2 ML VIAL ONE (13:46)
[2018-07-17] MEDS ORDERED: SODIUM CHLORIDE 0.9% 1000ML 1,000 ML ONE (13:46)
[2018-07-17] MEDS ORDERED: ATROPINE SULFATE 0.1 MG/ML 10ML SYR ONE (14:18)
--- NOTE | 2018-07-17 14:31 | NUR ---
RECEIVED REPORT FROM DENNIS IN SHIPPING RECEIVING MANAGER PT IS TO REMAIN ON BEDREST FOR 4 HOURS 1830 AWAITING FOR PT TO ARRIVE TO UNIT
[2018-07-17] MEDS ORDERED: FUROSEMIDE INJ 10 MG/ML 4 ML VIAL ONE (14:35)
--- NOTE | 2018-07-17 14:50 | NUR ---
PT BACK FROM HEART CATH. PT RESTING COMFORTABLY .FLAT UNTIL 1830. PT AWARE RIGHT GROIN IS DRY AND INTACT. PEDAL PULSES PRESENT BILATERALLY WILL CONTINUE TO MONITOR CLOSELY
--- NOTE | 2018-07-17 15:13 | NUR ---
DRESSING TO THE RIGHT GROIN DRY AND INTACT BILATERAL PEDAL PULSES PRESENT
[2018-07-17] MEDS ORDERED: HYDRALAZINE HCL 20 MG/ML VIAL IV PRN (15:30)
--- NOTE | 2018-07-17 15:32 | NUR ---
SPOKE WITH MD EDUARDO REGARDING HIGH BP. PRN MEDICATION GIVEN MD STATES AFTER 4HR BEDREST PT CAN DC TO HOME ASSESSED RIGHT GROIN AREA REMAINS CLEAN AND DRY
--- NOTE | 2018-07-17 17:08 | NUR ---
DRESSING TO RIGHT GROIN DRY AND INTACT
[2018-07-17] MEDS ORDERED: BRILINTA90 MG PO (17:23)
--- NOTE | 2018-07-17 17:31 | NUR ---
SPOKE WITH MD SLAUGHTER REGARDING HOME MED RENEWAL UPON DC . HOME MEDS NOT REVIEWED WITH COLBY SLAUGHTER
--- NOTE | 2018-07-17 18:07 | NUR ---
DISCHARGE INSTRUCTIONS GIVEN AND PRESCRIPTIONS . PT VERBALIZED UNDERSTANDING IV DC PRESSURE DRESSING APPLIED AND TAPED TELE DC RIGHT GROIN IS DRY AND INTACT PT BEDREST IS COMPLETE AT 1830
--- NOTE | 2018-07-17 18:35 | NUR ---
DRESSING TO THE RIGHT GROIN REMAINS DRY AND INTACT. PEDAL PULSES PRESENT PT IS READY FOR DC
--- NOTE | 2018-07-17 18:47 | NUR ---
PT OFF UNIT AT THIS TIME TO HOME
--- NOTE | 2018-07-17 20:42 | Operative Report ---
DATE OF PROCEDURE: 07/17/2018 SURGEON: Franklin Walters DO PROCEDURES PERFORMED: 1. Conscious sedation, 30 minutes. 2. Selective coronary angiography x1. 3. Percutaneous transluminal coronary angioplasty to the left anterior descending coronary artery stent. PREPROCEDURE DIAGNOSES: 1. Coronary artery disease. 2. Congestive heart failure. POSTPROCEDURE DIAGNOSES: 1. Coronary artery disease. 2. Congestive heart failure. ESTIMATED BLOOD LOSS: Less than 20 mL. SPECIMENS REMOVED: None. PROCEDURE IN DETAIL: After informed consent was obtained, the patient brought to the cardiac catheterization laboratory in a fasting and nonsedated state. Bilateral groins were prepped and draped in the usual sterile fashion. A 2% lidocaine was infiltrated over the right anterior groin for local anesthesia. Using a micropuncture needle, the right common femoral artery was accessed via the modified Seldinger technique and a 6-[place] sheath was placed. The patient had a previously placed stent in the proximal to mid LAD yesterday with incomplete stent expansion. The patient received systemic heparin for therapeutic anticoagulation. The lesion was crossed with a Luge wire then dilated serially with a 4, then 4.5 noncompliant by 6 mm balloon. There was better stent expansion at the end of the case. The patient tolerated the procedure well with no immediate complications. Hemostasis was achieved via Angio-Seal device. The patient was transferred back to his room in stable condition. Franklin Walters DO BM/MODL /[id number]
--- NOTE | 2018-07-17 21:53 | Discharge Summary ---
DISCHARGE DIAGNOSES: 1. Coronary artery disease, status post percutaneous coronary intervention of the left anterior descending coronary artery. 2. Congestive heart failure. 3. Hypertension. 4. Hyperlipidemia. DISCHARGE ACTIVITY: As tolerated. DISCHARGE DISPOSITION: Home. DISCHARGE CONDITION: Stable. DISCHARGE MEDICATIONS: See medication reconciliation form. DISCHARGE FOLLOWUP: 2 weeks. HOSPITAL COURSE: The patient was brought in as an outpatient due to abnormal stress test and congestive heart failure. He was found to have a severe stenosis in his left anterior descending coronary artery and underwent percutaneous coronary intervention. However, improper stent expansion required him to stay overnight. The patient was brought back to the cardiac catheterization laboratory and he underwent transluminal angioplasty with a larger size balloon. He tolerated the procedure well, and his hospitalization course was uneventful and he was discharged to home. DO JOSSY Conti/MODL /[id number]
== END 2018-07-17 18:48 | disposition home or self-care (01) ==
LOC: CATH LAB 12:30 → MED/SURG 19:20
PROVIDERS: ADMIT Internal Medicine Cardiovascular Disease; ATTEND Internal Medicine Cardiovascular Disease
DX: I25.10 Atherosclerotic heart disease of native coronary artery without angina pectoris (principal); I11.0 Hypertensive heart disease with heart failure; I50.22 Chronic systolic (congestive) heart failure; E78.5 Hyperlipidemia, unspecified; E11.9 Type 2 diabetes mellitus without complications; E66.9 Obesity, unspecified; Z68.33 Body mass index [BMI] 33.0-33.9, adult; F17.210 Nicotine dependence, cigarettes, uncomplicated; I42.9 Cardiomyopathy, unspecified; I48.0 Paroxysmal atrial fibrillation; Z88.8 Allergy status to other drugs, medicaments and biological substances
CPT/HCPCS: 92920; 93458; 93571; C9600; 36415; 80048; 80053; 82948; 85025; 85610; 92928; C1725; C1769; C1874; C1887; G0378; J0153; J0360; J1940; J2001; J2250; J2270; J7030; Q9967